=== PATIENT | male | born 1965 | race African-American/Black ===

== ENCOUNTER 2017-08-17 07:31 | Emergency (ER) | payer BC ==
[~2017-08-17] VITALS: Ht 170.2 cm; Wt 70.0 kg
[2017-08-17 07:36] VITALS: BP 155/88; PULSE 88; RESP 16; TEMP 98; O2SAT 99
[2017-08-17] MEDS ORDERED: PHENYLEPHRINE HCL 1% NASAL SPRAY 15 ML BTL NASAL ONE (08:15)
--- NOTE | 2017-08-17 08:21 | PD ---
HPI Chief Complaint: Nosebleed Time Seen by Provider: 08:05 Travel History International Travel<30 days: No Contact w/Intl Traveler<30days: No Traveled to known affect area: No History of Present Illness HPI Patient is a 52-year-old male who presents the emergency room complaints of a nosebleed. Patient reports that for the past 4 days, he has been having intermittent bleeding to his right nares. Patient reports that bleeding starts after he picks his nose. Reports that bleeding would eventually resolve on its own, reports that he would then go ahead and blow his nose really had and it would start bleeding again. Patient reports that his nose started bleeding at work, they are concerned and called EMS. Patient does admit to picking his nose this morning -reports that he got his nose to stop bleeding but then he blew his nose really hard and the bleeding started again. Patient is currently not taking any anticoagulants. Denies sensation of lightheadedness or dizziness. PFSH Past Medical History Medical History: Denies Significant Hx Past Surgical History Surgical History: No Previous Surgery Social History Alcohol Use: Yes (occassianal) Tobacco Use: No Substance Use: No Allergies-Medications (Allergen,Severity, Reaction): Coded Allergies: No Known Allergies (Unverified , 08/17/17) Reported Meds & Prescriptions Reported Meds & Active Scripts Active No Active Prescriptions or Reported Medications Review of Systems General / Constitutional: No: Fever Eyes: No: Visual changes HENT: Positive: Nosebleed, No: Headaches Cardiovascular: No: Chest Pain or Discomfort Respiratory: No: Shortness of Breath Gastrointestinal: No: Abdominal Pain Genitourinary: No: Dysuria Musculoskeletal: No: Pain Skin: No Rash Neurologic: No: Weakness Psychiatric: No: Depression Endocrine: No: Polydipsia Hematologic/Lymphatic: No: Easy Bruising Physical Exam Narrative GENERAL: NAD SKIN: Focused skin assessment warm/dry. HEAD: Atraumatic. Normocephalic. EYES: Pupils equal and round. No scleral icterus. No injection or drainage. ENT: Mucous membranes pink and moist. Patient with epistasis to the right naris NECK: Trachea midline. No JVD. CARDIOVASCULAR: Regular rate and rhythm. No murmur appreciated. RESPIRATORY: No accessory muscle use. Clear to auscultation. Breath sounds equal bilaterally. GASTROINTESTINAL: Abdomen soft, non-tender, nondistended. Hepatic and splenic margins not palpable. MUSCULOSKELETAL: No obvious deformities. No clubbing. No cyanosis. No edema. NEUROLOGICAL: Awake and alert. No obvious cranial nerve deficits. Motor grossly within normal limits. Normal speech. PSYCHIATRIC: Appropriate mood and affect; insight and judgment normal. Data Data Last Documented VS Vital Signs Date Time Temp Pulse Resp B/P (MAP) Pulse Ox O2 Delivery O2 Flow Rate FiO2 08/17/17 07:36 98.0 88 16 155/88 (110) 99 Orders Orders Phenylephrine 1% Temo Spr (Neosynephrine (08/17/17 08:15) Complete Blood Count With Diff (08/17/17 08:17) Labs Laboratory Tests Test 08/17/17 08:19 White Blood Count 8.4 TH/MM3 Red Blood Count 4.65 MIL/MM3 Hemoglobin 10.8 GM/DL Hematocrit 34.0 % Mean Corpuscular Volume 73.1 FL Mean Corpuscular Hemoglobin 23.3 PG Mean Corpuscular Hemoglobin Concent 31.9 % Red Cell Distribution Width 14.6 % Platelet Count 202 TH/MM3 Mean Platelet Volume 8.2 FL Neutrophils (%) (Auto) 81.6 % Lymphocytes (%) (Auto) 9.9 % Monocytes (%) (Auto) 8.0 % Eosinophils (%) (Auto) 0.2 % Basophils (%) (Auto) 0.3 % Neutrophils # (Auto) 6.9 TH/MM3 Lymphocytes # (Auto) 0.8 TH/MM3 Monocytes # (Auto) 0.7 TH/MM3 Eosinophils # (Auto) 0.0 TH/MM3 Basophils # (Auto) 0.0 TH/MM3 CBC Comment DIFF FINAL Differential Comment MDM Medical Decision Making Medical Screen Exam Complete: Yes Emergency Medical Condition: Yes Medical Record Reviewed: Yes Interpretation(s) Vital Signs Date Time Temp Pulse Resp B/P (MAP) Pulse Ox O2 Delivery O2 Flow Rate FiO2 08/17/17 07:36 98.0 88 16 155/88 (110) 99 Differential Diagnosis Epistasis Narrative Course 52-year-old male presents to emergency room with complaints of epistasis to the right naris after picking his nose and then "blowing really hard to get the clots out." Patient currently is not taking any anticoagulants or antiplatelets. Discussed with patient need for direct pressure to the nose, discussed with him that he is not to pick his nose or blow his nose after direct pressure for 10 minutes. cbc was ordered to evaluated hgb as he has had intermittent epistasis for the past 4 days. CBC & BMP Diagram 08/17/17 08:19 hgb 10.8 - this was reviewed with patient Patient with cessation of nose bleed in the ER with direct pressure. Instructed patient to stop picking his nose. He will return to ER as needed Diagnosis Primary Impression: Epistaxis Patient Instructions: General Instructions Additional Instructions: Please follow up with ENT Return to ER as needed Scripts No Active Prescriptions or Reported Meds Disposition: 01 DISCHARGE HOME Condition: Stable Roz Whitney DO Aug 17, 2017 08:21
[2017-08-17 08:32] LABS: AUTOMATED NEUTROPHIL # 6.9 TH/MM3 (1.8-7.7); BASOPHIL % 0.3 % (0.0-2.0); EOSINOPHIL % 0.2 % (0.0-4.0); HEMOGLOBIN 10.8 GM/DL (13.0-17.0); LYMPH % 9.9 % (9.0-44.0); LYMPHOCYTE # 0.8 TH/MM3 (1.0-4.8); MEAN CELL VOLUME 73.1 FL (80.0-100.0); MEAN CORPUSCULAR HEMOGLOBIN 23.3 PG (27.0-34.0); MEAN CORPUSCULAR HGB CONC 31.9 % (32.0-36.0); MEAN PLATELET VOLUME 8.2 FL (7.0-11.0); MONOCYTE # 0.7 TH/MM3 (0-0.9); NEUT % 81.6 % (16.0-70.0); PLATELET COUNT 202 TH/MM3 (150-450); RED BLOOD COUNT 4.65 MIL/MM3 (4.50-5.90); RED CELL DISTRIBUTION WIDTH 14.6 % (11.6-17.2); WHITE BLOOD COUNT 8.4 TH/MM3 (4.0-11.0)
== END 2017-08-17 09:55 | disposition home or self-care (01) ==
LOC: NEPC 07:31
DX: R04.0 Epistaxis (principal)
CPT/HCPCS: 85025; 99283